=== PATIENT | male | born 1935 | race Caucasian/White ===

== ENCOUNTER 2017-05-31 00:37 | Inpatient (IN) | payer MEDICARE, MEDICAID ==
[2017-05-31] VITALS (13 sets, daily range): BP systolic 89–128; BP diastolic 47–66
[~2017-05-31] VITALS: Ht 170.2 cm; Wt 84.8 kg
[~2017-05-31 00:37] MED LIST: AMLO5TAB2 PO; AMOX1TAB64 PO; ASPI-496 PO; ASPI-624 PO; ASPI325T17 PO; ATOR20TA PO; ATOR80TA PO; AZIT250T; CLOP75TA52 PO; HTN MEDS; HYDR-3240 PO; LISI-170 PO; LISI20TA PO; MECL-76 PO; METO25TA91 PO; NITR0.4T28 SL; SENN-25 PO; TAMS-11 PO; TICA90TA PO; TIOT18CA INH; [UNRECOGNIZED DRUG - REMARK]
[2017-05-31] MEDS ORDERED: SODIUM CHLORIDE FLUSH 10ML SYR IVF ONE (01:00)
[2017-05-31] MEDS ORDERED: ACETAMINOPHEN 325 MG TABLET PO ONE ×2 (01:00→05:00)
[2017-05-31] MEDS ORDERED: SODIUM CHLORIDE 0.9% 1,000ML IVBOLUS ONE ×2 (01:00→04:50)
[2017-05-31] MEDS ORDERED: ONDANSETRON 2MG/ML, 2ML IVPush ONE (01:00)
[2017-05-31 01:35] LABS: HEMOGLOBIN 12.8 g/dL (13.7-18.0); WHITE BLOOD COUNT 17.6 x10^3/uL (3.4-10)
[2017-05-31 01:48] LABS: ASPARTATE AMINO TRANSFERASE 14 U/L (15-37); BLOOD UREA NITROGEN 28 mg/dL (7-18)
[2017-05-31] MEDS ORDERED: ONDANSETRON 2MG/ML, 2ML ONE (01:48)
[2017-05-31] MEDS ORDERED: ACETAMINOPHEN 500 MG TABLET ONE (01:48)
[2017-05-31 01:53] LABS: IS PT STATUS REG ER OR PRE ER? YES
[2017-05-31 01:54] LABS: DIFF TOTAL CELLS COUNTED 100 CELL DIFF
[2017-05-31 02:05] LABS: ANISOCYTOSIS 1+; VERIFY COUNTS? YES
[2017-05-31 02:06] LABS: OVALOCYTES 1+
[2017-05-31 02:08] LABS: LARGE PLATELETS 1+
[2017-05-31 03:46] LABS: RAPID INFLUENZA A Negative (Negative); RAPID INFLUENZA B Negative (Negative)
[2017-05-31] MEDS ORDERED: LIDOCAINE 1%, 20ML ONE (04:11)
[2017-05-31 05:00] LABS: GLUCOSE, CSF 75 mg/dL (40-80)
[2017-05-31] MEDS ORDERED: CEFTRIAXONE PMX 2GM/50ML 50 ML IV SCH ×2 (05:30→07:00)
[2017-05-31] MEDS ORDERED: VANCOMYCIN PER PHARMACY MC PRN ×2 (05:30→06:00)
[2017-05-31] MEDS ORDERED: PHARMACOKINETIC CONSULTATION MC ONE ×2 (05:30→07:00)
[2017-05-31] MEDS ORDERED: CEFTRIAXONE PMX 2GM/50ML 50 ML ONE (05:52)
[2017-05-31] MEDS ORDERED: ONDANSETRON 2MG/ML, 2ML IVPush PRN (06:00)
[2017-05-31] MEDS ORDERED: VANCOMYCIN 1,800 MG in SODIUM CHLORIDE 0.9% 250 ML IV ONE (06:00)
[2017-05-31] MEDS ORDERED: BISACODYL 10 MG SUPP PR PRN (06:00)
[2017-05-31] MEDS ORDERED: IPRATROPIUM 0.5 MG/2.5 ML INHA HHN PRN (06:00)
[2017-05-31] MEDS ORDERED: hydrALAzine 20 MG/ML, 1ML IVPush PRN (06:00)
[2017-05-31] MEDS ORDERED: ENOXAPARIN 40 MG/0.4 ML SQ SCH (06:00)
[2017-05-31] MEDS: D5%-0.9% NACL 1,000 ML IV SCH (06:35)
[2017-05-31] MEDS ORDERED: PHARMACOKINETIC MONITORING MC PRN (07:00)
[2017-05-31] MEDS: SODIUM CHLORIDE 0.9% IV SCH ×2 (08:28→15:55)
[2017-05-31] MEDS: ACYCLOVIR IV SCH ×2 (08:28→15:55)
[2017-05-31] MEDS: METOPROLOL SUCCINATE 25 MG TAB.ER.24H PO SCH ×2 (08:30→21:00)
[2017-05-31] MEDS: LISINOPRIL 20 MG TABLET PO SCH (08:30)
[2017-05-31] MEDS: ALBUTEROL/IPRATROPIUM 2.5MG/0.5MG, 3 ML NPPB SCH ×2 (09:00→19:00)
[2017-05-31] MEDS: ATORVASTATIN 80 MG TABLET PO SCH (15:05)
[2017-05-31] MEDS: TAMSULOSIN 0.4 MG CAP.ER.24H PO SCH (15:05)
[2017-05-31] MEDS: ASPIRIN 81 MG TABLET EC PO SCH (15:06)
[2017-05-31] MEDS: TICAGRELOR 90 MG TABLET PO SCH ×2 (15:06→22:28)
[2017-05-31] MEDS: CEFTRIAXONE PMX 2GM/50ML 50 ML IV SCH (18:36)
[2017-05-31] MEDS: ACETAMINOPHEN 325 MG TABLET PO PRN (18:52)
[2017-06-01] VITALS (10 sets, daily range): BP systolic 92–135; BP diastolic 52–91
[2017-06-01] MEDS: SODIUM CHLORIDE 0.9% IV SCH ×3 (00:05→17:44)
[2017-06-01] MEDS: ACYCLOVIR IV SCH ×3 (00:05→17:44)
[2017-06-01] MEDS: D5%-0.9% NACL 1,000 ML IV SCH (00:07)
[2017-06-01] MEDS: ACETAMINOPHEN 325 MG TABLET PO PRN (01:40)
[2017-06-01] MEDS: CEFTRIAXONE PMX 2GM/50ML 50 ML IV SCH ×2 (05:35→17:03)
[2017-06-01 05:47] LABS: HEMATOCRIT 29.7 % (39.2-51.8); WHITE BLOOD COUNT 11.2 x10^3/uL (3.4-10)
[2017-06-01 05:56] LABS: ASPARTATE AMINO TRANSFERASE 19 U/L (15-37); BLOOD UREA NITROGEN 25 mg/dL (7-18)
[2017-06-01 06:20] LABS: DIFF TOTAL CELLS COUNTED 100 CELL DIFF
[2017-06-01 06:26] LABS: VERIFY COUNTS? YES
[2017-06-01 06:33] LABS: ANISOCYTOSIS 2+; OVALOCYTES 1+
[2017-06-01] MEDS: TAMSULOSIN 0.4 MG CAP.ER.24H PO SCH (09:00)
[2017-06-01] MEDS: METOPROLOL SUCCINATE 25 MG TAB.ER.24H PO SCH ×2 (09:01→21:37)
[2017-06-01] MEDS: ATORVASTATIN 80 MG TABLET PO SCH (09:01)
[2017-06-01] MEDS: LISINOPRIL 20 MG TABLET PO SCH (09:01)
[2017-06-01] MEDS: TICAGRELOR 90 MG TABLET PO SCH ×2 (09:01→21:37)
[2017-06-01] MEDS: ASPIRIN 81 MG TABLET EC PO SCH (09:01)
[2017-06-01] MEDS ORDERED: DILTIAZEM 5 MG/ML, 5ML ONE (09:40)
[2017-06-01] MEDS ORDERED: MAGNESIUM SULFATE PMX 4GM/100M 100 ML IV ONE (10:00)
[2017-06-01] MEDS: SODIUM CHLORIDE 0.9% 500 ML IV SCH ×5 (10:00→13:19)
[2017-06-01] MEDS ORDERED: SODIUM CHLORIDE 0.9% 1,000 ML IV SCH (10:00)
[2017-06-01] MEDS ORDERED: DILTIAZEM 5 MG/ML, 5ML IVPush ONE (10:00)
[2017-06-01] MEDS: ALBUTEROL/IPRATROPIUM 2.5MG/0.5MG, 3 ML NPPB SCH (10:25)
[2017-06-01] MEDS ORDERED: DIGOXIN 0.25 MG/ML, 2ML IVPush ONE (10:30)
[2017-06-01] MEDS ORDERED: SODIUM CHLORIDE 0.9%, 500ML IVBOLUS ONE (11:00)
[2017-06-01] MEDS ORDERED: DILTIAZEM 125 MG in SODIUM CHLORIDE 0.9% 100 ML IV PRN (12:00)
[2017-06-01] MEDS ORDERED: SODIUM PHOSPHATE 20 MMOL in SODIUM CHLORIDE 0.9% 500 ML IV ONE (14:00)
[2017-06-01] MEDS ORDERED: VANCOMYCIN 1,800 MG in SODIUM CHLORIDE 0.9% 250 ML IV SCH (18:00)
[2017-06-01] MEDS ORDERED: VANCOMYCIN 1,400 MG in SODIUM CHLORIDE 0.9% 250 ML IV SCH (18:00)
[2017-06-01] MEDS ORDERED: IPRATROPIUM 0.5 MG/2.5 ML INHA ONE (19:46)
[2017-06-01] MEDS: IPRATROPIUM 0.5 MG/2.5 ML INHA NPPB SCH (19:50)
[2017-06-01] MEDS: DILTIAZEM 60 MG CAP.ER.12H PO SCH (21:38)
[2017-06-02] MEDS: SODIUM CHLORIDE 0.9% IV SCH ×2 (01:18→08:18)
[2017-06-02] MEDS: ACYCLOVIR IV SCH ×2 (01:18→08:18)
[2017-06-02 01:19] VITALS: BP 115/65
[2017-06-02 05:34] LABS: HEMATOCRIT 29.4 % (39.2-51.8); HEMOGLOBIN 10.3 g/dL (13.7-18.0); WHITE BLOOD COUNT 12.8 x10^3/uL (3.4-10)
[2017-06-02] MEDS: CEFTRIAXONE PMX 2GM/50ML 50 ML IV SCH (05:37)
[2017-06-02] MEDS: IPRATROPIUM 0.5 MG/2.5 ML INHA NPPB SCH ×2 (05:44→20:00)
[2017-06-02 05:45] LABS: BLOOD UREA NITROGEN 23 mg/dL (7-18)
[2017-06-02 05:55] LABS: DIFF TOTAL CELLS COUNTED 100 CELL DIFF
[2017-06-02 05:58] LABS: ANISOCYTOSIS 1+; VERIFY COUNTS? YES
[2017-06-02 06:00] LABS: POLYCHROMASIA 1+
[2017-06-02 08:00] VITALS: BP 112/61
[2017-06-02] MEDS: TAMSULOSIN 0.4 MG CAP.ER.24H PO SCH (08:18)
[2017-06-02] MEDS: DILTIAZEM 60 MG CAP.ER.12H PO SCH ×2 (08:18→20:54)
[2017-06-02] MEDS: TICAGRELOR 90 MG TABLET PO SCH ×2 (08:18→20:54)
[2017-06-02] MEDS: ASPIRIN 81 MG TABLET EC PO SCH (08:18)
[2017-06-02] MEDS ORDERED: METOPROLOL TARTRATE 25 MG TABLET PO SCH (08:30)
[2017-06-02 09:33] VITALS: BP 102/59
[2017-06-02] MEDS: LISINOPRIL 10 MG TABLET PO SCH (10:24)
[2017-06-02] MEDS: ATORVASTATIN 80 MG TABLET PO SCH (10:24)
[2017-06-02] MEDS ORDERED: DILTIAZEM 125 MG in SODIUM CHLORIDE 0.9% 100 ML IV PRN (12:00)
[2017-06-02 14:00] VITALS: BP 109/52
[2017-06-02] MEDS: CARVEDILOL 3.125 MG TABLET PO SCH (18:35)
[2017-06-03 02:05] VITALS: BP 149/77
[2017-06-03] MEDS: IPRATROPIUM 0.5 MG/2.5 ML INHA NPPB SCH ×3 (02:50→19:38)
[2017-06-03 04:58] LABS: HEMATOCRIT 30.3 % (39.2-51.8); HEMOGLOBIN 10.5 g/dL (13.7-18.0); WHITE BLOOD COUNT 14.3 x10^3/uL (3.4-10)
[2017-06-03 05:14] LABS: BLOOD UREA NITROGEN 19 mg/dL (7-18)
[2017-06-03 05:44] LABS: ANISOCYTOSIS 1+; DIFF TOTAL CELLS COUNTED 100; VERIFY COUNTS? YES
[2017-06-03 06:15] VITALS: BP 131/74
[2017-06-03] MEDS: CARVEDILOL 3.125 MG TABLET PO SCH ×2 (06:16→17:13)
[2017-06-03] MEDS ORDERED: IPRATROPIUM 0.5 MG/2.5 ML INHA NPPB PRN (08:00)
[2017-06-03] MEDS: ASPIRIN 81 MG TABLET EC PO SCH (09:19)
[2017-06-03] MEDS: ATORVASTATIN 80 MG TABLET PO SCH (09:19)
[2017-06-03] MEDS: TICAGRELOR 90 MG TABLET PO SCH ×2 (09:19→20:41)
[2017-06-03] MEDS: DILTIAZEM 60 MG CAP.ER.12H PO SCH ×2 (09:19→20:41)
[2017-06-03] MEDS: LISINOPRIL 10 MG TABLET PO SCH (09:19)
[2017-06-03] MEDS: TAMSULOSIN 0.4 MG CAP.ER.24H PO SCH (09:19)
[2017-06-03 10:01] VITALS: BP 118/69
[2017-06-03 14:23] VITALS: BP 134/71
[2017-06-03 17:28] LABS: PATH.CAST-FLAG NOT PRESENT; SPERM-FLAG NOT PRESENT; SRC-FLAG NOT PRESENT; XTAL-FLAG NOT PRESENT; YLC-FLAG NOT PRESENT
[2017-06-03 20:26] VITALS: BP 116/65
[2017-06-04 03:15] VITALS: BP 114/80
[2017-06-04] MEDS: CARVEDILOL 3.125 MG TABLET PO SCH ×2 (05:29→18:29)
[2017-06-04] MEDS: IPRATROPIUM 0.5 MG/2.5 ML INHA NPPB SCH ×2 (07:55→21:00)
[2017-06-04 07:58] VITALS: BP 114/57
[2017-06-04 08:08] LABS: BLOOD UREA NITROGEN 16 mg/dL (7-18); HEMATOCRIT 34.1 % (39.2-51.8); HEMOGLOBIN 11.6 g/dL (13.7-18.0); WHITE BLOOD COUNT 22.3 x10^3/uL (3.4-10)
[2017-06-04] MEDS: PIPERACILLIN/TAZO/PMX 4.5GM 100 ML IV SCH ×3 (08:30→18:29)
[2017-06-04] MEDS: TICAGRELOR 90 MG TABLET PO SCH ×2 (08:46→19:49)
[2017-06-04 08:47] LABS: DIFF TOTAL CELLS COUNTED 100 CELL DIFF
[2017-06-04] MEDS: ASPIRIN 81 MG TABLET EC PO SCH (08:47)
[2017-06-04] MEDS: DILTIAZEM 60 MG CAP.ER.12H PO SCH ×2 (08:47→19:51)
[2017-06-04] MEDS: ATORVASTATIN 80 MG TABLET PO SCH (08:47)
[2017-06-04] MEDS: TAMSULOSIN 0.4 MG CAP.ER.24H PO SCH (08:47)
[2017-06-04] MEDS: LISINOPRIL 10 MG TABLET PO SCH (08:47)
[2017-06-04 08:55] LABS: ANISOCYTOSIS 1+; MICROCYTOSIS 1+; OVALOCYTES 1+; VERIFY COUNTS? YES
[2017-06-04] MEDS ORDERED: VANCOMYCIN PER PHARMACY MC PRN (09:30)
[2017-06-04] MEDS ORDERED: PHARMACOKINETIC MONITORING MC PRN (10:00)
[2017-06-04] MEDS ORDERED: VANCOMYCIN 1,500 MG in SODIUM CHLORIDE 0.9% 250 ML IV SCH (10:00)
[2017-06-04] MEDS: SODIUM CHLORIDE 0.9% 1,000 ML IV SCH ×2 (11:23→19:49)
[2017-06-04] MEDS: methylPREDNISolone SOD SUCC 125 MG/2 ML IVPush SCH ×2 (11:24→19:49)
[2017-06-04 16:54] VITALS: BP 120/73
[2017-06-04 19:50] VITALS: BP 121/77
[2017-06-05] MEDS: PIPERACILLIN/TAZO/PMX 4.5GM 100 ML IV SCH ×4 (00:20→18:20)
[2017-06-05 01:41] VITALS: BP 150/88
[2017-06-05] MEDS: methylPREDNISolone SOD SUCC 125 MG/2 ML IVPush SCH ×3 (03:01→21:15)
[2017-06-05] MEDS: SODIUM CHLORIDE 0.9% 1,000 ML IV SCH ×3 (03:01→18:18)
[2017-06-05] MEDS: CARVEDILOL 3.125 MG TABLET PO SCH ×2 (05:30→18:19)
[2017-06-05 07:56] VITALS: BP 153/86
[2017-06-05 08:21] LABS: HEMATOCRIT 33.7 % (39.2-51.8); HEMOGLOBIN 11.6 g/dL (13.7-18.0)
[2017-06-05 08:24] LABS: BLOOD UREA NITROGEN 18 mg/dL (7-18)
[2017-06-05] MEDS: TICAGRELOR 90 MG TABLET PO SCH ×2 (08:30→21:13)
[2017-06-05] MEDS: DILTIAZEM 60 MG CAP.ER.12H PO SCH ×2 (08:30→21:14)
[2017-06-05] MEDS: TAMSULOSIN 0.4 MG CAP.ER.24H PO SCH (08:31)
[2017-06-05] MEDS: LISINOPRIL 10 MG TABLET PO SCH (08:31)
[2017-06-05] MEDS: ASPIRIN 81 MG TABLET EC PO SCH (08:31)
[2017-06-05] MEDS: IPRATROPIUM 0.5 MG/2.5 ML INHA NPPB SCH ×2 (09:00→19:39)
[2017-06-05 09:05] LABS: DIFF TOTAL CELLS COUNTED 100 CELL DIFF
[2017-06-05 09:09] LABS: VERIFY COUNTS? YES
[2017-06-05 09:10] LABS: ANISOCYTOSIS 1+
[2017-06-05 12:44] VITALS: BP 127/64
[2017-06-05 20:47] VITALS: BP 116/65
[2017-06-05] MEDS: ATORVASTATIN 80 MG TABLET PO SCH (21:14)
[2017-06-06] MEDS: PIPERACILLIN/TAZO/PMX 4.5GM 100 ML IV SCH ×2 (00:14→05:40)
[2017-06-06 00:19] VITALS: BP 135/84
[2017-06-06] MEDS: SODIUM CHLORIDE 0.9% 1,000 ML IV SCH ×2 (01:58→09:37)
[2017-06-06 05:38] LABS: HEMATOCRIT 32.3 % (39.2-51.8); HEMOGLOBIN 10.9 g/dL (13.7-18.0); WHITE BLOOD COUNT 28.3 x10^3/uL (3.4-10)
[2017-06-06 05:39] VITALS: BP 144/76
[2017-06-06] MEDS: CARVEDILOL 3.125 MG TABLET PO SCH ×2 (05:39→18:15)
[2017-06-06 06:04] LABS: BLOOD UREA NITROGEN 19 mg/dL (7-18)
[2017-06-06 07:50] LABS: DIFF TOTAL CELLS COUNTED 100 CELL DIFF
[2017-06-06 07:53] LABS: VERIFY COUNTS? YES
[2017-06-06 07:54] LABS: ANISOCYTOSIS 1+; OVALOCYTES 1+
[2017-06-06 08:00] VITALS: BP 122/73
[2017-06-06] MEDS: methylPREDNISolone SOD SUCC 125 MG/2 ML IVPush SCH (09:38)
[2017-06-06] MEDS: ASPIRIN 81 MG TABLET EC PO SCH (09:38)
[2017-06-06] MEDS: TICAGRELOR 90 MG TABLET PO SCH ×2 (09:38→20:46)
[2017-06-06] MEDS: TAMSULOSIN 0.4 MG CAP.ER.24H PO SCH (09:38)
[2017-06-06] MEDS: LISINOPRIL 10 MG TABLET PO SCH (09:39)
[2017-06-06] MEDS: DILTIAZEM 60 MG CAP.ER.12H PO SCH ×2 (09:39→20:46)
[2017-06-06] MEDS: CEFTRIAXONE PMX 1GM/50ML 50 ML IV SCH (11:33)
[2017-06-06 12:23] LABS: HEMATOCRIT 37.3 % (39.2-51.8); HEMOGLOBIN 12.3 g/dL (13.7-18.0)
[2017-06-06] MEDS: DOXYCYCLINE 100 MG in DEXTROSE 5% 250 ML IV SCH (12:26)
[2017-06-06] MEDS ORDERED: ALBUTEROL/IPRATROPIUM 2.5MG/0.5MG, 3 ML NPPB PRN (12:30)
[2017-06-06] MEDS: GUAIFENESIN ER 600 MG TABLET PO SCH ×2 (12:57→20:46)
[2017-06-06 13:33] VITALS: BP 139/90
[2017-06-06] MEDS: METRONIDAZOLE PMX 500MG/100ML 100 ML IV SCH ×2 (13:34→20:46)
[2017-06-06] MEDS: ALBUTEROL/IPRATROPIUM 2.5MG/0.5MG, 3 ML NPPB SCH ×2 (15:00→19:49)
[2017-06-06 17:23] LABS: HEMATOCRIT 35.2 % (39.2-51.8); HEMOGLOBIN 11.8 g/dL (13.7-18.0)
[2017-06-06 19:44] VITALS: BP 147/74
[2017-06-06] MEDS: ATORVASTATIN 80 MG TABLET PO SCH (20:46)
[2017-06-06 23:08] LABS: HEMATOCRIT 34.7 % (39.2-51.8); HEMOGLOBIN 11.5 g/dL (13.7-18.0)
[2017-06-07] MEDS: DOXYCYCLINE 100 MG in DEXTROSE 5% 250 ML IV SCH ×3 (00:21→23:44)
[2017-06-07 00:40] VITALS: BP 136/77
[2017-06-07] MEDS: CARVEDILOL 3.125 MG TABLET PO SCH ×2 (05:09→17:47)
[2017-06-07] MEDS: METRONIDAZOLE PMX 500MG/100ML 100 ML IV SCH ×2 (05:10→17:46)
[2017-06-07 06:04] LABS: HEMATOCRIT 31.3 % (39.2-51.8); WHITE BLOOD COUNT 32.9 x10^3/uL (3.4-10)
[2017-06-07 06:20] LABS: BLOOD UREA NITROGEN 26 mg/dL (7-18)
[2017-06-07] MEDS: ALBUTEROL/IPRATROPIUM 2.5MG/0.5MG, 3 ML NPPB SCH ×4 (07:00→19:44)
[2017-06-07 07:25] LABS: DIFF TOTAL CELLS COUNTED 100 CELL DIFF
[2017-06-07 07:43] VITALS: BP 127/76
[2017-06-07 07:49] LABS: VERIFY COUNTS? YES
[2017-06-07 07:50] LABS: ANISOCYTOSIS 1+; OVALOCYTES 1+
[2017-06-07] MEDS: TICAGRELOR 90 MG TABLET PO SCH ×2 (08:44→21:21)
[2017-06-07] MEDS: DILTIAZEM 60 MG CAP.ER.12H PO SCH ×2 (08:45→21:21)
[2017-06-07] MEDS: ASPIRIN 81 MG TABLET EC PO SCH (08:45)
[2017-06-07] MEDS: TAMSULOSIN 0.4 MG CAP.ER.24H PO SCH (08:45)
[2017-06-07] MEDS: GUAIFENESIN ER 600 MG TABLET PO SCH ×2 (08:45→21:21)
[2017-06-07] MEDS: LISINOPRIL 10 MG TABLET PO SCH (10:00)
[2017-06-07] MEDS: CEFTRIAXONE PMX 1GM/50ML 50 ML IV SCH (13:15)
[2017-06-07] MEDS ORDERED: MAGNESIUM SULFATE PMX 2GM/50ML 50 ML IV ONE (13:30)
[2017-06-07 13:47] VITALS: BP 118/70
[2017-06-07 20:38] VITALS: BP 124/75
[2017-06-07] MEDS: ATORVASTATIN 80 MG TABLET PO SCH (21:21)
[2017-06-08 00:37] VITALS: BP 147/92
[2017-06-08] MEDS: METRONIDAZOLE PMX 500MG/100ML 100 ML IV SCH ×3 (01:03→17:07)
[2017-06-08 05:03] LABS: HEMATOCRIT 32.3 % (39.2-51.8); HEMOGLOBIN 11.6 g/dL (13.7-18.0); WHITE BLOOD COUNT 35.5 x10^3/uL (3.4-10)
[2017-06-08 05:08] LABS: BLOOD UREA NITROGEN 28 mg/dL (7-18)
[2017-06-08 05:46] LABS: DIFF TOTAL CELLS COUNTED 100 CELL DIFF
[2017-06-08 05:49] LABS: ANISOCYTOSIS 1+; OVALOCYTES 1+; POLYCHROMASIA 1+; VERIFY COUNTS? YES
[2017-06-08 06:05] VITALS: BP 139/84
[2017-06-08] MEDS: CARVEDILOL 3.125 MG TABLET PO SCH ×2 (06:07→18:12)
[2017-06-08] MEDS: ALBUTEROL/IPRATROPIUM 2.5MG/0.5MG, 3 ML NPPB SCH ×4 (07:38→20:00)
[2017-06-08] MEDS: TICAGRELOR 90 MG TABLET PO SCH ×2 (08:43→20:49)
[2017-06-08] MEDS: LISINOPRIL 10 MG TABLET PO SCH (08:43)
[2017-06-08] MEDS: GUAIFENESIN ER 600 MG TABLET PO SCH ×2 (08:43→20:49)
[2017-06-08] MEDS: ASPIRIN 81 MG TABLET EC PO SCH (08:43)
[2017-06-08] MEDS: TAMSULOSIN 0.4 MG CAP.ER.24H PO SCH (08:43)
[2017-06-08] MEDS: DILTIAZEM 60 MG CAP.ER.12H PO SCH ×2 (08:44→20:49)
[2017-06-08 08:49] VITALS: BP_SYST 147; BP_SYST 157; BP_DIAS 90; BP_DIAS 91
[2017-06-08] MEDS: CEFTRIAXONE PMX 1GM/50ML 50 ML IV SCH (11:16)
[2017-06-08] MEDS ORDERED: OMNIPAQUE 350 MG/ML, 100ML BOTTLE ONE (11:19)
[2017-06-08] MEDS: DOXYCYCLINE 100 MG in DEXTROSE 5% 250 ML IV SCH ×2 (12:35→23:52)
[2017-06-08 12:53] VITALS: BP 125/74
[2017-06-08 14:30] VITALS: BP 148/95
[2017-06-08 19:20] VITALS: BP 139/89
[2017-06-08] MEDS ORDERED: ALBUTEROL/IPRATROPIUM 2.5MG/0.5MG, 3 ML NPPB PRN (19:30)
[2017-06-08] MEDS ORDERED: ONDANSETRON 2MG/ML, 2ML IVPush PRN (19:30)
[2017-06-08] MEDS ORDERED: BISACODYL 10 MG SUPP PR PRN (19:30)
[2017-06-08] MEDS ORDERED: hydrALAzine 20 MG/ML, 1ML IVPush PRN (19:30)
[2017-06-08] MEDS ORDERED: ACETAMINOPHEN 325 MG TABLET PO PRN (19:30)
[2017-06-08] MEDS: ATORVASTATIN 80 MG TABLET PO SCH (20:49)
[2017-06-09] MEDS: METRONIDAZOLE PMX 500MG/100ML 100 ML IV SCH ×3 (01:27→17:35)
[2017-06-09 02:16] VITALS: BP 126/79
[2017-06-09 05:27] VITALS: BP 151/72
[2017-06-09] MEDS: CARVEDILOL 3.125 MG TABLET PO SCH ×2 (05:28→17:35)
[2017-06-09 05:45] LABS: HEMATOCRIT 33.9 % (39.2-51.8); HEMOGLOBIN 11.7 g/dL (13.7-18.0); WHITE BLOOD COUNT 34.3 x10^3/uL (3.4-10)
[2017-06-09 06:07] LABS: BLOOD UREA NITROGEN 27 mg/dL (7-18)
[2017-06-09 06:55] LABS: DIFF TOTAL CELLS COUNTED 100 CELL DIFF
[2017-06-09 06:57] LABS: ANISOCYTOSIS 1+; POLYCHROMASIA 1+; VERIFY COUNTS? YES
[2017-06-09] MEDS: ALBUTEROL/IPRATROPIUM 2.5MG/0.5MG, 3 ML NPPB SCH ×4 (07:00→19:45)
[2017-06-09 08:48] VITALS: BP 123/65
[2017-06-09] MEDS: LISINOPRIL 10 MG TABLET PO SCH (09:28)
[2017-06-09] MEDS: GUAIFENESIN ER 600 MG TABLET PO SCH ×2 (09:28→20:43)
[2017-06-09] MEDS: TAMSULOSIN 0.4 MG CAP.ER.24H PO SCH (09:28)
[2017-06-09] MEDS: TICAGRELOR 90 MG TABLET PO SCH ×2 (09:28→20:43)
[2017-06-09] MEDS: DILTIAZEM 60 MG CAP.ER.12H PO SCH ×2 (09:28→20:43)
[2017-06-09] MEDS: ASPIRIN 81 MG TABLET EC PO SCH (09:28)
[2017-06-09] MEDS: CEFTRIAXONE PMX 1GM/50ML 50 ML IV SCH (11:22)
[2017-06-09] MEDS: DOXYCYCLINE 100 MG in DEXTROSE 5% 250 ML IV SCH ×2 (12:36→23:40)
[2017-06-09 14:01] VITALS: BP 146/78
[2017-06-09] MEDS: ATORVASTATIN 80 MG TABLET PO SCH (20:43)
[2017-06-09 20:54] VITALS: BP 127/76
[2017-06-10] MEDS: METRONIDAZOLE PMX 500MG/100ML 100 ML IV SCH ×2 (01:37→08:46)
[2017-06-10 02:00] VITALS: BP 134/71
[2017-06-10 05:08] VITALS: BP 135/71
[2017-06-10 05:09] LABS: HEMATOCRIT 32.8 % (39.2-51.8); HEMOGLOBIN 11.1 g/dL (13.7-18.0); WHITE BLOOD COUNT 30.5 x10^3/uL (3.4-10)
[2017-06-10 05:20] LABS: BLOOD UREA NITROGEN 29 mg/dL (7-18)
[2017-06-10] MEDS: CARVEDILOL 3.125 MG TABLET PO SCH (05:23)
[2017-06-10 05:45] LABS: DIFF TOTAL CELLS COUNTED 100 CELL DIFF
[2017-06-10 05:47] LABS: VERIFY COUNTS? YES
[2017-06-10 05:48] LABS: ANISOCYTOSIS 1+; OVALOCYTES 1+; POLYCHROMASIA 1+
[2017-06-10 07:26] VITALS: BP 146/79
[2017-06-10] MEDS: ALBUTEROL/IPRATROPIUM 2.5MG/0.5MG, 3 ML NPPB SCH ×4 (07:30→15:54)
[2017-06-10] MEDS: ASPIRIN 81 MG TABLET EC PO SCH (08:46)
[2017-06-10] MEDS: TAMSULOSIN 0.4 MG CAP.ER.24H PO SCH (08:46)
[2017-06-10] MEDS: GUAIFENESIN ER 600 MG TABLET PO SCH (08:46)
[2017-06-10] MEDS: TICAGRELOR 90 MG TABLET PO SCH (08:46)
[2017-06-10] MEDS: LISINOPRIL 10 MG TABLET PO SCH (08:46)
[2017-06-10] MEDS: DILTIAZEM 60 MG CAP.ER.12H PO SCH (08:46)
[2017-06-10] MEDS: CEFTRIAXONE PMX 1GM/50ML 50 ML IV SCH (11:19)
[2017-06-10] MEDS: DOXYCYCLINE 100 MG in DEXTROSE 5% 250 ML IV SCH (12:13)
[2017-06-10 12:56] VITALS: BP 152/85
[2017-06-10] MEDS ORDERED: CARV3.1212 PO (12:56)
[2017-06-10] MEDS ORDERED: LISI-167 PO (12:56)
[2017-06-10] MEDS ORDERED: DOXY100C PO (12:56)
[2017-06-10] MEDS ORDERED: METR500P3 IV (12:56)
[2017-06-10] MEDS ORDERED: CEFT1FRO2 IV (12:56)
[2017-06-10] MEDS ORDERED: GUAI600T31 PO (12:56)
[2017-06-10] MEDS ORDERED: DILT60CA PO (12:56)
[2017-06-10] MEDS ORDERED: PRED20TA PO (12:56)
== END 2017-06-10 16:23 | DRG 682 ==
LOC: SUATTDRO 05:37 → ED 06:03 → 4NOR 06:11 → 4WST 06-01 09:27 → 4EST 06-02 01:27
PROVIDERS: ADMIT Hospitalist; ATTEND Hospitalist
PROC: 009U3ZX Drainage of Spinal Canal, Percutaneous Approach, Diagnostic (ICD-10-PCS; principal; 2017-05-31)
PROC: 0T9B70Z Drainage of Bladder with Drainage Device, Via Natural or Artificial Opening (ICD-10-PCS; 2017-05-31)
DX: N17.9 Acute kidney failure, unspecified (principal); G93.40 Encephalopathy, unspecified; J18.9 Pneumonia, unspecified organism; E44.0 Moderate protein-calorie malnutrition; I11.0 Hypertensive heart disease with heart failure; A87.9 Viral meningitis, unspecified; I50.32 Chronic diastolic (congestive) heart failure; I48.91 Unspecified atrial fibrillation; J44.0 Chronic obstructive pulmonary disease with (acute) lower respiratory infection; J44.1 Chronic obstructive pulmonary disease with (acute) exacerbation; R41.82 Altered mental status, unspecified; E83.42 Hypomagnesemia; E83.39 Other disorders of phosphorus metabolism; Y95 Nosocomial condition; F17.200 Nicotine dependence, unspecified, uncomplicated; E78.5 Hyperlipidemia, unspecified; E86.9 Volume depletion, unspecified; F41.9 Anxiety disorder, unspecified; I25.10 Atherosclerotic heart disease of native coronary artery without angina pectoris; I35.8 Other nonrheumatic aortic valve disorders; N40.0 Benign prostatic hyperplasia without lower urinary tract symptoms; R09.02 Hypoxemia; T38.0X5A Adverse effect of glucocorticoids and synthetic analogues, initial encounter; Z79.899 Other long term (current) drug therapy; Z79.82 Long term (current) use of aspirin; Z86.73 Personal history of transient ischemic attack (TIA), and cerebral infarction without residual deficits; Z86.79 Personal history of other diseases of the circulatory system; Z91.19 Patient's noncompliance with other medical treatment and regimen; Z95.5 Presence of coronary angioplasty implant and graft; Z68.29 Body mass index [BMI] 29.0-29.9, adult
CPT/HCPCS: 36415; 70450; 71010; 71275; 74230; 80048; 80053; 81001; 81003; 82945; 82962; 83605; 83735; 83880; 84100; 84145; 84157; 84484; 85014; 85018; 85025; 87040; 87070; 87086; 87205; 87400; 89051; 93005; 93306; 94640; 96361; 96374; 96375; J0133; J0696; J2405; J2543; J3370; J7042; J7060; J7620; J7644; Q9967; J1160; J2930; J3475; J7030; J7040; J7050; J7512